=== PATIENT | female | born 2000 | race Two or more races ===

== ENCOUNTER 2024-01-26 06:55 | Day surgery (SDC) | payer MEDICAID ==
[2024-01-26 07:46] VITALS: BMI 38.2
[2024-01-26 08:06] LABS: Fetal Membranes Rupture No Membranes Rupture (No Rupture)
[2024-01-26] MEDS ORDERED: hydrALAZINE 20 MG/ML VIAL SLOW IVP PRN ×2 (08:20→08:23)
[2024-01-26] MEDS ORDERED: Labetalol HCl 100 MG/20 ML VIAL SLOW IVP PRN ×3 (08:23)
[2024-01-26] MEDS ORDERED: Lactated Ringer's 1,000 ML IV SCH (08:30)
[2024-01-26 09:18] LABS: #Basophils 0.01 10x3/uL (0.0-0.2); #Eosinphils 0.08 10x3/uL (0.0-0.5); #Monocytes 1.12 10x3/uL (0.0-1.1); #Neutrophils 7.87 10x3/uL (1.5-8.4); %Basophils 0.1 % (0.0-2.0); %Eosinophils 0.7 % (0.0-6.0); %Lymphocytes 16.3 % (18.0-47.0); %Monocytes 10.3 % (0.0-10.0); %Neutrophils 72.1 % (40.0-75.0); Hematocrit 37.4 % (34.9-44.5); Hemoglobin 11.9 g/dL (12.0-15.5); Mean Corpuscular HGB CONC 31.8 g/dL (32.0-36.0); Mean Corpuscular Hemoglobin 29.6 pg (27.0-33.0); Mean Platelet Volume 11.4 fL (7.4-10.4); Platelet Count 278 10x3/uL (150-450); RBC Distribution Width 13.6 % (11.5-14.5); Red Blood Cell (RBC) Count 4.02 10x6/uL (3.90-5.03); White Blood Cell (WBC) Count 10.9 10x3/uL (3.5-10.5)
[2024-01-26 09:30] LABS: ALT (SGPT) 12 U/L (8-55); AST (SGOT) 18 U/L (5-34); Albumin 2.7 g/dL (3.5-5.0); Alkaline Phosphatase 194 U/L (40-110); Anion Gap 12 mmol/L (10-20); BUN (Urea Nitrogen) 4 mg/dL (7.0-18.7); Bilirubin, Total 0.3 mg/dL (0.2-1.2); Calc. Creatinine Clearance 173 mL/min (70-130); Calcium 9.6 mg/dL (7.8-10.44); Carbon Dioxide 23 mmol/L (22-29); Chloride 106 mmol/L (98-107); Estimated GFR 122; Globulin 4.2 g/dL (2.4-3.5); Glucose 81 mg/dL (70-105); Protein, Total 6.9 g/dL (6.0-8.3); Sodium 137 mmol/L (136-145)
[2024-01-26 11:00] LABS: Creatinine, Urine 73.82 mg/dL (47-110); Protein, Urine Random Quant Less than 10 mg/dL (1-14)
== END 2024-01-26 11:35 | disposition home or self-care (01) ==
LOC: CSHLD/OP 06:55
PROVIDERS: ATTEND Family Medicine
DX: O23.593 Infection of other part of genital tract in pregnancy, third trimester (principal); N89.8 Other specified noninflammatory disorders of vagina; O98.713 Human immunodeficiency virus [HIV] disease complicating pregnancy, third trimester; O99.891 Other specified diseases and conditions complicating pregnancy; R03.0 Elevated blood-pressure reading, without diagnosis of hypertension; O99.343 Other mental disorders complicating pregnancy, third trimester; F41.9 Anxiety disorder, unspecified; F32.A Depression, unspecified; F43.10 Post-traumatic stress disorder, unspecified; Z98.890 Other specified postprocedural states; Z3A.37 37 weeks gestation of pregnancy
CPT/HCPCS: 36415; 80053; 82570; 84112; 84156; 85025; 99284

== ENCOUNTER 2024-02-01 14:53 | Day surgery (SDC) | payer MEDICAID ==
[2024-02-01] MEDS ORDERED: hydrALAZINE 20 MG/ML VIAL SLOW IVP PRN (15:22)
[2024-02-01 15:28] VITALS: BMI 39.2
[2024-02-01 15:58] LABS: #Basophils 0.01 10x3/uL (0.0-0.2); #Eosinphils 0.07 10x3/uL (0.0-0.5); #Monocytes 0.79 10x3/uL (0.0-1.1); #Neutrophils 5.35 10x3/uL (1.5-8.4); %Basophils 0.1 % (0.0-2.0); %Eosinophils 0.9 % (0.0-6.0); %Lymphocytes 22.1 % (18.0-47.0); %Monocytes 9.9 % (0.0-10.0); %Neutrophils 66.8 % (40.0-75.0); Hematocrit 31.9 % (34.9-44.5); Hemoglobin 10.8 g/dL (12.0-15.5); Mean Corpuscular HGB CONC 33.9 g/dL (32.0-36.0); Mean Corpuscular Hemoglobin 30.7 pg (27.0-33.0); Mean Corpuscular Volume 90.6 fL (81.6-98.3); Mean Platelet Volume 11.2 fL (7.4-10.4); Platelet Count 261 10x3/uL (150-450); RBC Distribution Width 14.5 % (11.5-14.5); Red Blood Cell (RBC) Count 3.52 10x6/uL (3.90-5.03)
[2024-02-01 16:15] LABS: ALT (SGPT) 8 U/L (8-55); AST (SGOT) 21 U/L (5-34); Albumin 2.5 g/dL (3.5-5.0); Alkaline Phosphatase 189 U/L (40-110); Anion Gap 11 mmol/L (10-20); BUN (Urea Nitrogen) 5 mg/dL (7.0-18.7); Bilirubin, Total 0.3 mg/dL (0.2-1.2); Calc. Creatinine Clearance 185 mL/min (70-130); Carbon Dioxide 19 mmol/L (22-29); Chloride 108 mmol/L (98-107); Estimated GFR 125; Globulin 3.9 g/dL (2.4-3.5); Glucose 95 mg/dL (70-105); Potassium 3.9 mmol/L (3.5-5.1); Protein, Total 6.4 g/dL (6.0-8.3); Sodium 134 mmol/L (136-145)
[2024-02-01 16:19] LABS: Creatinine, Urine 54.03 mg/dL (47-110); Protein, Urine Random Quant Less than 10 mg/dL (1-14)
== END 2024-02-01 17:05 | disposition home or self-care (01) ==
LOC: CSHLD/OP 14:53
PROVIDERS: ATTEND Family Medicine
DX: O99.891 Other specified diseases and conditions complicating pregnancy (principal); R10.11 Right upper quadrant pain; O98.713 Human immunodeficiency virus [HIV] disease complicating pregnancy, third trimester; Z3A.38 38 weeks gestation of pregnancy; Z79.899 Other long term (current) drug therapy; Z98.890 Other specified postprocedural states
CPT/HCPCS: 36415; 80053; 82570; 84156; 85025; 99283

== ENCOUNTER 2024-02-22 23:55 | Inpatient (IN) | payer MEDICAID ==
[2024-02-23] MEDS ORDERED: hydrALAZINE 20 MG/ML VIAL SLOW IVP PRN (00:39)
[2024-02-23] MEDS ORDERED: Labetalol HCl 100 MG/20 ML VIAL SLOW IVP PRN ×2 (00:39)
[2024-02-23] MEDS: Acetaminophen 500 MG TAB PO SCH (01:37)
[2024-02-23] MEDS: Labetalol HCl 100 MG/20 ML VIAL SLOW IVP PRN (01:38)
[2024-02-23 01:46] LABS: #Basophils 0.03 10x3/uL (0.0-0.2); #Eosinophils 0.28 10x3/uL (0.0-0.5); #Neutrophils 7.03 10x3/uL (1.5-8.4); %Basophils 0.3 % (0.0-2.0); %Eosinophils 2.7 % (0.0-6.0); %Lymphocytes 21.6 % (18.0-47.0); %Monocytes 8.5 % (0.0-10.0); %Neutrophils 66.6 % (40.0-75.0); Hematocrit 33.2 % (34.9-44.5); Hemoglobin 11.1 g/dL (12.0-15.5); Mean Corpuscular HGB CONC 33.4 g/dL (32.0-36.0); Mean Corpuscular Volume 92.7 fL (81.6-98.3); Mean Platelet Volume 10.4 fL (7.4-10.4); Platelet Count 301 10x3/uL (150-450); Red Blood Cell (RBC) Count 3.58 10x6/uL (3.90-5.03); White Blood Cell (WBC) Count 10.6 10x3/uL (3.5-10.5)
[2024-02-23 02:03] LABS: ALT (SGPT) 34 U/L (8-55); AST (SGOT) 33 U/L (5-34); Albumin 3.2 g/dL (3.5-5.0); Alkaline Phosphatase 183 U/L (40-110); Anion Gap 15 mmol/L (10-20); BUN (Urea Nitrogen) 13 mg/dL (7.0-18.7); Bilirubin, Total 0.3 mg/dL (0.2-1.2); Calc. Creatinine Clearance 0 mL/min (70-130); Calcium 9.7 mg/dL (7.8-10.44); Carbon Dioxide 21 mmol/L (22-29); Chloride 106 mmol/L (98-107); Estimated GFR 100; Globulin 4.4 g/dL (2.4-3.5); Glucose 82 mg/dL (70-105); Protein, Total 7.6 g/dL (6.0-8.3); Sodium 138 mmol/L (136-145)
[2024-02-23] MEDS: Magnesium Sulfate 20 gm/500 ml 20 GM/500 ML BAG ONE (02:07)
[2024-02-23] MEDS ORDERED: Lorazepam 2 MG/ML VIAL SLOW IVP PRN (02:10)
[2024-02-23] MEDS ORDERED: Calcium Gluc 4.6 MEQ/10 ML (100 MG/ML) SLOW IVP PRN (02:10)
[2024-02-23 02:27] LABS: Bilirubin Neg (Negative); Blood, Urine 10 (Negative); Clarity Clear (Clear); Glucose, Urine (Dipstick) Normal (Negative); Ketone, Urine Negative (Negative); Leukocyte Negative (Negative); Nitrite Negative (Negative); Protein, Urine (Dipstick) Negative (Neg-Trace); Specific Gravity, Urine 1.015 (1.005-1.030); Urobilinogen Normal mg/dL (Less than 2); pH, Urine 6.5 (5.0-9.0)
[2024-02-23 02:38] LABS: Bacteria/HPF None Seen HPF (None Seen); CAUTI Indications for Culture Pregnancy; RBC/HPF 0-3 HPF (0-3); Squamous Epithelial None Seen HPF (0-3); WBC/HPF None Seen HPF (0-3)
[2024-02-23 02:39] LABS: Urine Culture Reflex No No; Urine Culture Reflex Yes Yes
[2024-02-23] MEDS ORDERED: NIFEdipine XL 60 MG ER.TAB PO SCH (09:00)
[2024-02-23] MEDS ORDERED: Labetalol HCl 200 MG TAB PO SCH (09:00)
[2024-02-23] MEDS: NIFEdipine XL 30 MG ER.TAB PO SCH (09:50)
[2024-02-23] MEDS: Labetalol HCl 200 MG TAB PO SCH (09:50)
[2024-02-23] MEDS: Ibuprofen 800 MG TAB PO PRN (09:59)
[2024-02-23] MEDS: Lactated Ringer's 1,000 ML IV SCH (19:26)
[2024-02-23] MEDS: Magnesium Sulfate 20 gm/500 ml 20 GM/500 ML BAG IVPB SCH (19:55)
[2024-02-23] MEDS ORDERED: Acetaminophen 500 MG TAB PO PRN (23:14)
[2024-02-23] MEDS ORDERED: traMADol HCl 50 MG TAB PO PRN (23:14)
[2024-02-23] MEDS ORDERED: Simethicone Chewable 80 MG TAB PO PRN (23:15)
[2024-02-23] MEDS ORDERED: Tamsulosin HCl 0.4 MG CAP PO PRN (23:19)
[2024-02-23 23:53] LABS: #Basophils 0.02 10x3/uL (0.0-0.2); #Eosinophils 0.26 10x3/uL (0.0-0.5); #Monocytes 0.75 10x3/uL (0.0-1.1); #Neutrophils 6.12 10x3/uL (1.5-8.4); %Basophils 0.2 % (0.0-2.0); %Eosinophils 2.7 % (0.0-6.0); %Lymphocytes 24.4 % (18.0-47.0); %Monocytes 7.9 % (0.0-10.0); %Neutrophils 64.5 % (40.0-75.0); Hematocrit 33.9 % (34.9-44.5); Hemoglobin 11.1 g/dL (12.0-15.5); Mean Corpuscular HGB CONC 32.7 g/dL (32.0-36.0); Mean Corpuscular Hemoglobin 30.6 pg (27.0-33.0); Mean Corpuscular Volume 93.4 fL (81.6-98.3); Mean Platelet Volume 9.8 fL (7.4-10.4); Platelet Count 311 10x3/uL (150-450); RBC Distribution Width 16.3 % (11.5-14.5); Red Blood Cell (RBC) Count 3.63 10x6/uL (3.90-5.03); White Blood Cell (WBC) Count 9.5 10x3/uL (3.5-10.5)
[2024-02-24 11:55] VITALS: BP 120/64; TEMP 98.2
== END 2024-02-24 14:50 | disposition home or self-care (01) | DRG 776 ==
LOC: CSHERS 23:55 → CSHLD/OP 02-23 00:17 → CSHLD 02-23 01:51 → CSHPP 02-24 01:52
PROVIDERS: ADMIT Family Medicine; ATTEND Family Medicine
DX: O14.15 Severe pre-eclampsia, complicating the puerperium (principal)
CPT/HCPCS: 36415; 80053; 81001; 82570; 84156; 85025; 87086; 99285; J3475